=== PATIENT | male | born 1950 | race American Indian/Alaskan Native ===

== ENCOUNTER 2018-10-21 07:44 | Observation (INO) | payer MEDICARE, OTHER ==
[2018-10-17 11:22] LABS: Basophils # (Auto) 0.1 K/mm3 (0.0-0.1); Basophils % (Auto) 1.4 % (0.0-1.8); Eosinophils # (Auto) 0.4 K/mm3 (0.0-0.4); Eosinophils % (Auto) 6.9 % (0.0-4.3); Hematocrit 42.8 % (35.5-45.6); Hemoglobin 14.6 gm/dl (11.8-15.2); Lymphocytes # (Auto) 1.5 K/mm3 (1.2-5.4); Lymphocytes % (Auto) 29.3 % (13.4-35.0); Mean Corpuscular HGB Conc 34 % (32-34); Mean Corpuscular Volume 89 fl (84-94); Monocytes # (Auto) 0.5 K/mm3 (0.0-0.8); Monocytes % (Auto) 8.8 % (0.0-7.3); Platelet Count 202 K/mm3 (140-440); Red Blood Count 4.84 M/mm3 (3.65-5.03); Red Cell Distribution Width 13.8 % (13.2-15.2)
--- NOTE | 2018-10-17 11:29 | Anesthesia Consultation ---
Anesthesia Consult and Med Hx Date of service: 10/21/18 - Airway Anesthetic Teeth Evaluation: Good ROM Head & Neck: Adequate Mental/Hyoid Distance: Adequate Mallampati Class: Class I Intubation Access Assessment: Good - Pulmonary Exam CTA: Yes - Cardiac Exam Cardiac Exam: RRR - Pre-Operative Health Status ASA Pre-Surgery Classification: ASA3 Proposed Anesthetic Plan: General - Pulmonary Hx Smoking: Yes (STOPPED AT AGE 19 YRS) Hx Sleep Apnea: No (DARVIN PRE SCREEN HIGH RISK) - Cardiovascular System Hx Hypertension: Yes (X 45 YRS) Hx Heart Murmur: Yes - Endocrine Hx Insulin Dependent Diabetes: Yes (To hold am insulin) - Other Systems Hx Cancer: No
[2018-10-17 11:38] LABS: INR 0.97 (0.87-1.13)
[2018-10-17 11:39] LABS: Partial Thromboplastin Time 27.6 Sec. (24.2-36.6)
[2018-10-17 11:42] LABS: Alanine Aminotransferase 16 units/L (7-56); Albumin 4.1 g/dL (3.9-5); BUN/Creatinine Ratio 15; Blood Urea Nitrogen 20 mg/dL (9-20); Calcium 9.6 mg/dL (8.4-10.2); Hemolysis Index 3
[~2018-10-21 07:44] MED LIST: PEPCID PO NR; VERSED IV NR
--- NOTE | 2018-10-21 08:41 | Anesthesia Day of Surgery ---
Anesthesia Day of Surgery - Day of Surgery Patient Examined: Yes Patient H&P Reviewed: Yes Patient is NPO: Yes
[2018-10-21] MEDS: NACL 0.9% 1000 ML 1,000 ML IV SCH (08:45)
[2018-10-21] MEDS ORDERED: DILAUDID IV PRN (08:58)
[2018-10-21] MEDS ORDERED: ANCEF/STERILE WATER 2 GM/20 ML IV NR (09:00)
[2018-10-21] MEDS ORDERED: SUBLIMAZE ONE ×2 (09:22→10:41)
[2018-10-21] MEDS ORDERED: DIPRIVAN 10 MG/ML IV ONE (09:23)
[2018-10-21] MEDS ORDERED: ZOFRAN ONE (09:24)
[2018-10-21] MEDS ORDERED: XYLOCAINE MPF 2% ONE (09:24)
[2018-10-21] MEDS ORDERED: RIFADIN ONE (09:29)
[2018-10-21] MEDS ORDERED: GENTAMICIN ONE (09:29)
[2018-10-21] MEDS ORDERED: NACL P/F VIAL (10 ML) 10 ML ONE (09:29)
[2018-10-21] MEDS ORDERED: NACL 0.9% 50 ML ONE (09:30)
[2018-10-21] MEDS ORDERED: NACL 0.9% 500 ML 500 ML ONE (09:30)
[2018-10-21] MEDS ORDERED: NACL P/F VIAL (10 ML) 0 ML ONE (09:35)
[2018-10-21] MEDS ORDERED: MARCAINE 0.25% INFILTRATI ONE ×2 (09:37→09:56)
[2018-10-21] MEDS ORDERED: GENTAMICIN IV ONE (09:56)
[2018-10-21] MEDS ORDERED: NEOSPORIN GU IR ONE ×2 (09:56→10:45)
[2018-10-21] MEDS ORDERED: RIFADIN IV ONE (09:56)
[2018-10-21] MEDS ORDERED: ZOFRAN IV PRN (11:24)
[2018-10-21] MEDS ORDERED: D50W (25GM) Syringe IV PRN (11:24)
[2018-10-21] MEDS ORDERED: MORPHINE IV PRN (11:24)
[2018-10-21] MEDS ORDERED: NARCAN 0.4 MG/1 ML IV PRN (11:24)
--- NOTE | 2018-10-21 11:24 | Short Stay Summary ---
Short Stay Documentation Date of service: 10/21/18 - History H&P: obtained from office - Allergies and Medications Current Medications: Allergies lisinopril Allergy (Verified 10/16/18 09:58) Unknown spironolactone Allergy (Verified 10/16/18 09:58) Unknown tramadol Allergy (Verified 10/16/18 09:58) Unknown travoprost [From Travatan Z] Allergy (Verified 10/16/18 09:58) Unknown Home Medications Medication Instructions Recorded Confirmed Last Taken Type Aspirin [Adult Aspirin] 81 mg PO DAILY 10/16/18 10/16/18 Unknown History AtorvaSTATin [Lipitor] 40 mg PO QHS 10/17/18 10/17/18 Unknown History Cetirizine HCl [ZyrTEC 10mg cap] 10 mg PO DAILY 10/17/18 10/17/18 Unknown History Cholecalciferol (Vitamin D3) 1,000 unit PO DAILY 10/17/18 10/17/18 Unknown History [Children's Vitamin D3 1,000 unit CHEW] DOXYCYCLINE Hyclate [Vibramycin] 100 mg PO Q12HR 10/17/18 10/17/18 Unknown History Docusate Sodium [Colace] 100 mg PO BID PRN 10/17/18 10/17/18 Unknown History Dorzolamide/Timolol/Pf [Timolol 1 drop OP DAILY 10/17/18 10/17/18 Unknown History 0.5%-Dorzolamide 2%] Eplerenone [Inspra] 50 mg PO DAILY 10/17/18 10/17/18 Unknown History Insulin Aspart [NovoLOG Flexpen] 15 units SQ AC 10/17/18 10/17/18 Unknown History Insulin Glargine,Hum.rec.anlog 10 unit SQ TID 10/17/18 10/17/18 Unknown History [Lantus Solostar] Latanoprost 0.005% [Xalatan 0.005%] 1 drop OP QPM 10/17/18 10/17/18 Unknown History Losartan [Cozaar] 100 mg PO QDAY 10/17/18 10/17/18 Unknown History Multivit-Min/FA/Lycopen/Lutein 1 each PO DAILY 10/17/18 10/17/18 Unknown History [Centrum Silver Men Tablet] Prazosin [Minipress] 5 mg PO DAILY 10/17/18 10/17/18 Unknown History Pregabalin [Lyrica] 100 mg PO DAILY 10/17/18 10/17/18 Unknown History amLODIPine [Norvasc] 10 mg PO DAILY 10/17/18 10/17/18 Unknown History traZODone [Desyrel] 100 mg PO BID 10/17/18 10/17/18 Unknown History Active Medications Cefazolin Sodium (Ancef/Sterile Water 2 Gm/20 Ml) 2 gm IV PREOP NR Stop: 10/21/18 16:00 Hydromorphone HCl (Dilaudid) 0.5 mg IV Q10MIN PRN PRN Reason: Pain , Severe (7-10) Stop: 10/21/18 20:00 Sodium Chloride (Nacl 0.9% 1000 Ml) 1,000 mls @ 100 mls/hr IV DIRECT ANGELO Last Admin: 10/21/18 08:45 Dose: 100 mls/hr Documented by: - Brief post op/procedure progress note Date of procedure: 10/21/18 Pre-op diagnosis: ED Post-op diagnosis: same Procedure: ipp COLOPLAST (22CM + 2CM RTE), INJECTION CORPORAL BODY, SCROTAPLASTY Surgeon: BRANDI CLANCY Paper Box Cutter: KATHI MILLER Estimated blood loss: minimal Pathology: list (SCROTAL SKIN) Specimen disposition: to lab Condition: stable - Hospital course Hospital course: KARINA BACTRIIta at home, POST OP INFO ON CHART asa sullivaney & cecilia - Disposition Condition at discharge: Stable Short Stay Discharge Plan Follow up with: [facility] [Primary Care Provider] - 7 Days
[2018-10-21] MEDS ORDERED: COLACE PO PRN (11:29)
--- NOTE | 2018-10-21 11:56 | Consultation ---
History of Present Illness - Reason for Consult Consult date: 10/21/18 Requesting physician: BRANDI PAINTER - History of Present Illness 68 YO Male with DM, HTN admitted to [facility] for elective Urology procedure. Consult placed by Dr. Painter for medical management. Pt seen and evaluated in his room. Pt denies fever, chills, CP, Palpitations, NVD, productive cough, or recent ill contacts. No reported nursing events. Past History Past Medical History: diabetes, hypertension Past Surgical History: Other (urologic surgery) Social history: , lives with family. denies: smoking, alcohol abuse, prescription drug abuse Family history: hypertension Medications and Allergies Allergies Allergy/AdvReac Type Severity Reaction Status Date / Time lisinopril Allergy Unknown Verified 10/16/18 09:58 spironolactone Allergy Unknown Verified 10/16/18 09:58 tramadol Allergy Unknown Verified 10/16/18 09:58 travoprost [From Travatan Z] Allergy Unknown Verified 10/16/18 09:58 Home Medications Medication Instructions Recorded Confirmed Last Taken Type Aspirin [Adult Aspirin] 81 mg PO DAILY 10/16/18 10/16/18 Unknown History AtorvaSTATin [Lipitor] 40 mg PO QHS 10/17/18 10/17/18 Unknown History Cetirizine HCl [ZyrTEC 10mg cap] 10 mg PO DAILY 10/17/18 10/17/18 Unknown History Cholecalciferol (Vitamin D3) 1,000 unit PO DAILY 10/17/18 10/17/18 Unknown Hist ory [Children's Vitamin D3 1,000 unit CHEW] DOXYCYCLINE Hyclate [Vibramycin] 100 mg PO Q12HR 10/17/18 10/17/18 Unknown History Docusate Sodium [Colace] 100 mg PO BID PRN 10/17/18 10/17/18 Unknown History Dorzolamide/Timolol/Pf [Timolol 1 drop OP DAILY 10/17/18 10/17/18 Unknown Hist ory 0.5%-Dorzolamide 2%] Eplerenone [Inspra] 50 mg PO DAILY 10/17/18 10/17/18 Unknown History Insulin Aspart [NovoLOG Flexpen] 15 units SQ AC 10/17/18 10/17/18 Unknown History Insulin Glargine,Hum.rec.anlog 10 unit SQ TID 10/17/18 10/17/18 Unknown History [Lantus Solostar] Latanoprost 0.005% [Xalatan 0.005%] 1 drop OP QPM 10/17/18 10/17/18 Unknown History Losartan [Cozaar] 100 mg PO QDAY 10/17/18 10/17/18 Unknown History Multivit-Min/FA/Lycopen/Lutein 1 each PO DAILY 10/17/18 10/17/18 Unknown History [Centrum Silver Men Tablet] Prazosin [Minipress] 5 mg PO DAILY 10/17/18 10/17/18 Unknown History Pregabalin [Lyrica] 100 mg PO DAILY 10/17/18 10/17/18 Unknown History amLODIPine [Norvasc] 10 mg PO DAILY 10/17/18 10/17/18 Unknown History traZODone [Desyrel] 100 mg PO BID 10/17/18 10/17/18 Unknown History Active Meds: Active Medications Acetaminophen/Hydrocodone Bitart ([place] 5/325) 2 each PO Q6H PRN PRN Reason: Pain, Moderate (4-6) Amlodipine Besylate (Norvasc) 10 mg PO DAILY ANGELO Atorvastatin Calcium (Lipitor) 40 mg PO QHS ANGELO Cefazolin Sodium (Ancef/Sterile Water 2 Gm/20 Ml) 2 gm IV PREOP NR Stop: 10/21/18 16:00 Cholecalciferol (Vitamin D3) 1,000 unit PO QDAY ANGELO Dextrose (D50w (25gm) Syringe) 50 ml IV PRN PRN PRN Reason: Hypoglycemia Docusate Sodium (Colace) 100 mg PO BID PRN PRN Reason: Constipation Hydromorphone HCl (Dilaudid) 0.5 mg IV Q10MIN PRN PRN Reason: Pain , Severe (7-10) Stop: 10/21/18 20:00 Sodium Chloride (Nacl 0.9% 1000 Ml) 1,000 mls @ 100 mls/hr IV DIRECT ANGELO Last Admin: 10/21/18 08:45 Dose: 100 mls/hr Documented by: Sodium Chloride (Nacl 0.45% 1000 Ml) 1,000 mls @ 100 mls/hr IV DIRECT ANGELO Cefazolin Sodium (Ancef/Ns 1 Gm/50 Ml) 1 gm in 50 mls @ 100 mls/hr IV Q8H ANGELO; Protocol Stop: 10/21/18 20:29 Insulin Human Regular (Humulin R) 0 units SUB-Q ACHS ANGELO; Protocol Latanoprost (Latanoprost 0.005%) 1 drops OU QPM ANGELO Losartan Potassium (Cozaar) 100 mg PO QDAY [facility] Miscellaneous Medication (Cetirizine Hcl [Zyrtec 10mg Cap]) 10 mg PO DAILY [facility] Miscellaneous Medication (Dorzolamide/Timolol/Pf [Timolol 0.5%-Dorzolamide 2%]) 1 drop OP DAILY ANGELO Miscellaneous Medication (Eplerenone [Inspra]) 50 mg PO DAILY ANGELO Miscellaneous Medication (Insulin Aspart [Novolog Flexpen]) 15 units SQ AC ANGELO Miscellaneous Medication (Insulin Glargine,Hum.Rec.Anlog [Lantus Solostar]) 10 unit SQ TID ANGELO Miscellaneous Medication (Multivit-Min/Fa/Lycopen/Lutein [Centrum Silver Men Tablet]) 1 each PO DAILY [facility] Morphine Sulfate (Morphine) 2 mg IV Q4H PRN PRN Reason: Pain, Moderate (4-6) Naloxone HCl (Narcan 0.4 Mg/1 Ml) 0.1 mg IV Q2MIN PRN PRN Reason: Res Rate </= 8 or 02 SAT < 92% Ondansetron HCl (Zofran) 4 mg IV Q8H PRN PRN Reason: N/V unrelieved by Reglan Prazosin HCl (Minipress) 5 mg PO DAILY [facility] Pregabalin (Lyrica) 100 mg PO QDAY [facility] Trazodone HCl (Desyrel) 100 mg PO BID [facility] Review of Systems Constitutional: no weight loss, no weight gain, no fever, no chills Ears, nose, mouth and throat: no ear pain, no ear discharge, no tinnitis, no nasal discharge Cardiovascular: no chest pain, no orthopnea, no palpitations, no rapid/irregular heart beat, no syncope Respiratory: no cough, no excessive sputum, no hemoptysis, no shortness of breath Gastrointestinal: no abdominal pain, no nausea, no diarrhea, no constipation, no change in bowel habits Genitourinary Male: no hematuria, no urinary hesitancy, no nocturia, no incontinence Rectal: no pain, no incontinence, no bleeding Musculoskeletal: no neck stiffness, no neck pain, no shooting arm pain, no shooting leg pain Integumentary: no rash, no pruritis, no redness, no sores, no wounds Neurological: no head injury, no transient paralysis, no paralysis, no weakness, no numbness, no tingling, no syncope Psychiatric: no anxiety, no memory loss, no sleep disturbances, no insomnia, no hypersomnia, no change in libido, no suicidal ideation Endocrine: no cold intolerance, no heat intolerance, no polyphagia, no excessive thirst, no polyuria Hematologic/Lymphatic: no easy bruising, no easy bleeding, no lymphadenopathy, no lymphedema Allergic/Immunologic: no urticaria, no allergic rhinitis, no wheezing, no persistent infections, no anaphylaxis Exam - Constitutional Vitals: Temp Pulse Resp BP Pulse Ox 98.4 F 104 H 18 126/83 98 10/21/18 08:20 10/21/18 11:50 10/21/18 11:50 10/21/18 11:50 10/21/18 11:50 General appearance: Present: no acute distress, well-nourished - EENT Eyes: Present: PERRL ENT: hearing intact, clear oral mucosa - Neck Neck: Present: supple, normal ROM - Respiratory Respiratory effort: normal Respiratory: bilateral: CTA - Cardiovascular Heart Sounds: Present: S1 & S2. Absent: rub, click - Extremities Extremities: pulses symmetrical, No edema Peripheral Pulses: within normal limits - Abdominal General gastrointestinal: Present: soft, non-tender, non-distended, normal bowel sounds Male genitourinary: Present: normal - Integumentary Integumentary: Present: clear, warm, dry - Musculoskeletal Musculoskeletal: gait normal, strength equal bilaterally - Psychiatric Psychiatric: appropriate mood/affect, intact judgment & insight - Neurologic Neurologic: CNII-XII intact, moves all extremities Results - Labs CBC & Chem 7: 10/17/18 10:55 10/17/18 10:55 Assessment and Plan - Patient Problems (1) HTN (hypertension) Current Visit: Yes Status: Acute Qualifiers: Hypertension type: essential hypertension Qualified Code(s): I10 - Essential (primary) hypertension Plan to address problem: monitor BP q shift, (2) Diabetes Current Visit: Yes Status: Acute Plan to address problem: ADA diet, insulin, accu check
--- NOTE | 2018-10-21 11:58 | Operative Report ---
PREOPERATIVE DIAGNOSIS: Erectile dysfunction. POSTOPERATIVE DIAGNOSIS: Erectile dysfunction. PROCEDURE: 1. Insertion of inflatable penile prosthesis (Coloplast Titan 22 cm +2 cm rear tip clay structure builder and servicer with 125 mL reservoir). 2. Scrotoplasty secondary to redundant scrotal skin. 3. Insertion of pharmacologic agent in corporal bodies. SURGEON: Daniel Painter MD CORRESPONDENCE SCHOOL INSTRUCTOR: Doc Baker. ANESTHESIA: General. ESTIMATED BLOOD LOSS: Minimal. FLUIDS: Crystalloid. COMPLICATIONS: No complications. INDICATIONS: This patient is a 68-year-old gentleman seen in the office with long history of erectile dysfunction, refractory to medical management. Discussed options. The patient wanted to proceed with surgical intervention. Cardiac clearance was by Dr. Verdugo. DESCRIPTION OF PROCEDURE: The patient was taken to the operative suite, placed in a supine position. After adequate general anesthesia, he was prepped and draped in a sterile fashion. Pryor catheter was placed on the operative field. Metal Lawrence retractor was used for exposure. A 0.25% Marcaine was injected into the corporal body to identify curvature and postop pain. No curvature or plaque could be appreciated. Transscrotal incision was made with the Bovie. Sharp dissection was taken down to the corporal bodies. A 2-0 Vicryl stay sutures were placed. Corporotomies were made bilaterally. Gentle dilation was performed. Total measurement 24 cm bilaterally; therefore, a 22 cm Coloplast Titan device with 2 cm rear tip extenders were prepped and placed. The device was dipped in antibiotic solution with the aid of a Blas needle and Porter. The cylinders were brought out through the glans penis proximally. The device was inserted in the corporal body without difficulty. A 2-0 Vicryl suture was used to close the corporotomies. Insufflation, the adequate seating of the cylinders could be appreciated and approximately 60 mL of saline was used. No curvature or deformity could be appreciated. Copious irrigation was performed. Adequate hemostasis achieved. The reservoir was placed in the retropubic space via the right external ring. A 110 mL was placed without difficulty. The quick-click connection system was used to connect the reservoir to the pump. Once they were connected, again cycling was performed with an excellent cosmetic appearance. The pump was placed in the dependent portion of the scrotum. A pursestring suture was used to secure the pump in a dependent portion running stitch of 2-0 Vicryl to close the dartos layer. There was redundant skin, which was trimmed on the proximal and distal aspect of the scrotum and sent for routine pathologic evaluation. Scrotal skin was then closed with 2-0 Vicryl in an interrupted fashion. Collodion was placed, Xeroform gauze and Mummy wrap was also placed. The patient was extubated and taken to recovery room. He will be observed overnight and go home on Bactrim and Ty Ty. JOB# [id number] [facility]
[2018-10-21] MEDS ORDERED: NACL 0.45% 1000 ML 1,000 ML IV SCH (12:00)
--- NOTE | 2018-10-21 12:06 | Event Note ---
Date: 10/21/18 consult hospitalist for med mgmt spoke with Dr. Louise Dhillon to see
[2018-10-21] MEDS ORDERED: DILAUDID ONE (12:45)
[2018-10-21] MEDS ORDERED: HumaLOG SUB-Q ONE (13:19)
[2018-10-21] MEDS ORDERED: D50W (25GM) Syringe IV ONE ×2 (13:49→13:50)
[2018-10-21] MEDS ORDERED: NACL 0.45% 1000 ML 1,000 ML IV ONE (13:55)
[2018-10-21] MEDS ORDERED: LANTUS SUB-Q SCH (14:00)
[2018-10-21] MEDS ORDERED: LATANOPROST 0.005% OU SCH (18:00)
[2018-10-21] MEDS: HumaLOG SUB-Q SCH (19:21)
[2018-10-21] MEDS: ANCEF/NS 1 GM/50 ML 1 GM/50 ML BAG IV SCH (21:42)
[2018-10-21] MEDS: DESYREL PO SCH (21:43)
[2018-10-22] MEDS: LANTUS SUB-Q SCH ×2 (00:10→00:11)
[2018-10-22] MEDS: HumuLIN R SUB-Q SCH ×4 (00:11→16:50)
[2018-10-22] MEDS: NACL 0.9% 1000 ML 1,000 ML IV SCH (02:19)
[2018-10-22] MEDS: NORCO 5/325 PO PRN ×2 (02:20→17:21)
[2018-10-22] MEDS: ANCEF/NS 1 GM/50 ML 1 GM/50 ML BAG IV SCH (05:12)
[2018-10-22] MEDS ORDERED: LANTUS SUB-Q SCH (08:00)
--- NOTE | 2018-10-22 08:43 | Progress Note ---
Assessment and Plan Assessment and plan: 68 YO Male with DM, HTN admitted to [facility] for elective Urology procedure. Consult placed by Dr. Painter for medical management. Hypertension - Patient's blood pressures on the low side of normal - I held his amlodipine for now Diabetes mellitus - Sliding-scale insulin - Blood sugar within target Status post elective urologic procedure for ED - Management is per urology Patient is medically stable. We'll follow along. Thank you for the consult. History Interval history: Patient was seen and evaluated this morning, patient didn't have any complaints. Hospitalist Physical - Physical exam Narrative exam: Not in cardiopulmonary distress. The patient appeared well nourished and normally developed. Vital signs as documented. Head exam is unremarkable. No scleral icterus . Neck is without jugular venous distension, thyromegaly, or carotid bruits. Lungs are clear to auscultation. Cardiac exam reveals regular rate and Rhythm. First and second heart sounds normal. No murmurs, rubs or gallops. Abdominal exam reveals normal bowel sounds, no masses, no organomegaly and no aortic enlargement. Extremities are nonedematous and both femoral and pedal pulses are normal. BOWLING OR SKATING FRONT DESK CLERK: Alert and oriented 3. No focal weakness. - Constitutional Vitals: Temp Pulse Resp BP Pulse Ox 97.5 F L 97 H 18 102/65 100 10/22/18 04:56 10/22/18 04:56 10/22/18 04:56 10/22/18 04:56 10/22/18 04:56 General appearance: Present: no acute distress, well-nourished Results - Labs CBC & Chem 7: 10/17/18 10:55 10/17/18 10:55 Labs: Laboratory Last Values WBC 5.2 K/mm3 (4.5-11.0) 10/17/18 10:55 RBC 4.84 M/mm3 (3.65-5.03) 10/17/18 10:55 Hgb 14.6 gm/dl (11.8-15.2) 10/17/18 10:55 Hct 42.8 % (35.5-45.6) 10/17/18 10:55 MCV 89 fl (84-94) 10/17/18 10:55 MCH 30 pg (28-32) 10/17/18 10:55 MCHC 34 % (32-34) 10/17/18 10:55 RDW 13.8 % (13.2-15.2) 10/17/18 10:55 Plt Count 202 K/mm3 (140-440) 10/17/18 10:55 Lymph % (Auto) 29.3 % (13.4-35.0) 10/17/18 10:55 [place] % (Auto) 8.8 % (0.0-7.3) H 10/17/18 10:55 Eos % (Auto) 6.9 % (0.0-4.3) H 10/17/18 10:55 Baso % (Auto) 1.4 % (0.0-1.8) 10/17/18 10:55 Lymph # 1.5 K/mm3 (1.2-5.4) 10/17/18 10:55 [place] # 0.5 K/mm3 (0.0-0.8) 10/17/18 10:55 Eos # 0.4 K/mm3 (0.0-0.4) 10/17/18 10:55 Baso # 0.1 K/mm3 (0.0-0.1) 10/17/18 10:55 Seg Neutrophils % 53.6 % (40.0-70.0) 10/17/18 10:55 Seg Neutrophils # 2.8 K/mm3 (1.8-7.7) 10/17/18 10:55 PT 13.5 Sec. (12.2-14.9) 10/17/18 10:55 INR 0.97 (0.87-1.13) 10/17/18 10:55 APTT 27.6 Sec. (24.2-36.6) 10/17/18 10:55 Sodium 139 mmol/L (137-145) 10/17/18 10:55 Potassium 4.3 mmol/L (3.6-5.0) 10/17/18 10:55 Chloride 99.3 mmol/L (98-107) 10/17/18 10:55 Carbon Dioxide 28 mmol/L (22-30) 10/17/18 10:55 16 mmol/L 10/17/18 10:55 BUN 20 mg/dL (9-20) 10/17/18 10:55 1.3 mg/dL (0.8-1.5) 10/17/18 10:55 Estimated GFR > 60 ml/min 10/17/18 10:55 15 % 10/17/18 10:55 Glucose 75 mg/dL (75-100) 10/17/18 10:55 POC Glucose 152 (70-105) H 10/22/18 07:43 Calcium 9.6 mg/dL (8.4-10.2) 10/17/18 10:55 0.50 mg/dL (0.1-1.2) 10/17/18 10:55 AST 17 units/L (5-40) 10/17/18 10:55 ALT 16 units/L (7-56) 10/17/18 10:55 84 units/L (35-129) 10/17/18 10:55 7.5 g/dL (6.3-8.2) 10/17/18 10:55 4.1 g/dL (3.9-5) 10/17/18 10:55 1.2 % 10/17/18 10:55 Active Medications - Current Medications Current Medications: Generic Name Dose Route Start Last Admin Trade Name Freq PRN Reason Stop Dose Admin Acetaminophen/Hydrocodone Bitart 2 each 10/21/18 11:24 10/22/18 02:20 [place] 5/325 PO 2 each Q6H PRN Administration Pain, Moderate (4-6) Amlodipine Besylate 10 mg 10/22/18 10:00 Norvasc PO DAILY ANGELO Atorvastatin Calcium 40 mg 10/21/18 22:00 10/21/18 21:42 Lipitor PO 40 mg QHS ANGELO Administration Cholecalciferol 1,000 unit 10/22/18 10:00 Vitamin D3 PO QDAY ANGELO Dextrose 50 ml 10/21/18 11:24 D50w (25gm) Syringe IV PRN PRN Hypoglycemia Docusate Sodium 100 mg 10/21/18 11:29 Colace PO BID PRN Constipation Sodium Chloride 1,000 mls @ 100 mls/hr 10/17/18 12:00 10/22/18 02:19 Nacl 0.9% 1000 Ml IV 100 mls/hr DIRECT ANGELO Administration Sodium Chloride 1,000 mls @ 100 mls/hr 10/21/18 12:00 Nacl 0.45% 1000 Ml IV DIRECT AGNELO Insulin Glargine 10 units 10/22/18 08:00 Lantus SUB-Q TID [facility] Insulin Human Lispro 15 unit 10/21/18 16:30 10/21/18 19:21 Humalog SUB-Q Not Given AC [facility] Insulin Human Regular 0 units 10/22/18 07:30 Humulin R SUB-Q AC [facility] Protocol Latanoprost 1 drops 10/21/18 18:00 10/21/18 21:43 Latanoprost 0.005% OU 1 drops QPM [facility] Administration Loratadine 10 mg 10/22/18 10:00 Claritin PO DAILY [facility] Losartan Potassium 100 mg 10/22/18 10:00 Cozaar PO QDAY [facility] Miscellaneous Medication 1 drop 10/22/18 10:00 Dorzolamide/Timolol/Pf [Timolol 0.5%-Dorzolamide 2%] OP DAILY [facility] Miscellaneous Medication 50 mg 10/22/18 10:00 Eplerenone [Inspra] PO DAILY [facility] Morphine Sulfate 2 mg 10/21/18 11:24 10/21/18 19:13 Morphine IV 2 mg Q4H PRN Administration Pain, Moderate (4-6) Multivitamins/Minerals 1 each 10/22/18 10:00 Theragran-M Tab PO QDAY [facility] Naloxone HCl 0.1 mg 10/21/18 11:24 Narcan 0.4 Mg/1 Ml IV Q2MIN PRN Res Rate </= 8 or 02 SAT < 92% Ondansetron HCl 4 mg 10/21/18 11:24 Zofran IV Q8H PRN N/V unrelieved by Jasmeet Prazosin HCl 5 mg 10/22/18 10:00 Minipress PO DAILY [facility] Pregabalin 100 mg 10/22/18 10:00 Lyrica PO QDAY [facility] Trazodone HCl 100 mg 10/21/18 22:00 10/21/18 21:43 Desyrel PO 100 mg BID ANGELO Administration
[2018-10-22] MEDS: DESYREL PO SCH (09:07)
[2018-10-22] MEDS: HumaLOG SUB-Q SCH ×3 (09:19→16:45)
[2018-10-22] MEDS ORDERED: THERAGRAN-M Tab PO SCH (10:00)
[2018-10-22] MEDS ORDERED: MINIPRESS PO SCH (10:00)
[2018-10-22] MEDS ORDERED: NORVASC PO SCH (10:00)
[2018-10-22] MEDS ORDERED: CLARITIN PO SCH (10:00)
[2018-10-22] MEDS ORDERED: COZAAR PO SCH (10:00)
[2018-10-22] MEDS ORDERED: LYRICA PO SCH (10:00)
[2018-10-22] MEDS ORDERED: NON-FORMULARY (Cetirizine Hcl [Zyrtec 10mg Cap] 10 MG) PO SCH (10:00)
[2018-10-22] MEDS ORDERED: DORZOLAMIDE OP SCH (10:00)
[2018-10-22] MEDS ORDERED: TIMOLOL OP SCH (10:00)
[2018-10-22] MEDS ORDERED: EPLERENONE 50 MG PO SCH (10:00)
[2018-10-22] MEDS ORDERED: VITAMIN D3 PO SCH (10:00)
[2018-10-22 13:00] VITALS: BP 111/67
== END 2018-10-22 19:33 | disposition home or self-care (01) ==
LOC: OR 07:44 → 3A 11:24 → 3B-SURG 14:12
PROVIDERS: ADMIT Urology; ATTEND Urology
DX: N52.01 Erectile dysfunction due to arterial insufficiency (principal); E11.9 Type 2 diabetes mellitus without complications; I10 Essential (primary) hypertension; Z98.890 Other specified postprocedural states; Z88.8 Allergy status to other drugs, medicaments and biological substances; Z79.82 Long term (current) use of aspirin; Z79.899 Other long term (current) drug therapy
CPT/HCPCS: 36415; 54401; 55175; 80053; 82962; 85025; 85610; 85730; 96365; 96366; 96372; 96375; A9270; C1813; G0378; J0690; J1170; J1580; J2270; J2405; J2704; J3010; J3490; J7030; J7040; J1815

== ENCOUNTER 2018-11-26 10:45 | Emergency (ER) | payer MEDICARE, OTHER ==
[2018-11-26] MEDS ORDERED: D50W (25GM) Syringe IV ONE (10:50)
[2018-11-26] MEDS ORDERED: D50W (25GM) Vial IV ONE (10:58)
--- NOTE | 2018-11-26 11:00 | Emergency Department Report ---
ED Altered Mental Status HPI - General Stated Complaint: AMS Time Seen by Provider: 11/26/18 10:52 Source: RN/MD Mode of arrival: Wheelchair Limitations: Altered Mental Status - History of Present Illness Initial Comments: 68-year-old male with history of diabetes presents to ED with altered mental status. Patient was brought over from Dr. Painter's office. The patient present ed to Dr. Painter's office for an appointment this morning. On arrival for his appointment, patient was altered and diaphoretic so he was wheeled over to the ER. Accu-Chek reads less than 25. - Related Data Home Medications Medication Instructions Recorded Confirmed Last Taken Aspirin [Adult Aspirin] 81 mg PO DAILY 10/16/18 10/16/18 Unknown AtorvaSTATin [Lipitor] 40 mg PO QHS 10/17/18 10/17/18 Unknown Cetirizine HCl [ZyrTEC 10mg cap] 10 mg PO DAILY 10/17/18 10/17/18 Unknown Cholecalciferol (Vitamin D3) 1,000 unit PO DAILY 10/17/18 10/17/18 Unknown [Children's Vitamin D3 1,000 unit CHEW] DOXYCYCLINE Hyclate [Vibramycin] 100 mg PO Q12HR 10/17/18 10/17/18 Unknown Docusate Sodium [Colace] 100 mg PO BID PRN 10/17/18 10/17/18 Unknown Dorzolamide/Timolol/Pf [Timolol 1 drop OP DAILY 10/17/18 10/17/18 Unknown 0.5%-Dorzolamide 2%] Eplerenone [Inspra] 50 mg PO DAILY 10/17/18 10/17/18 Unknown Insulin Aspart [NovoLOG Flexpen] 15 units SQ AC 10/17/18 10/17/18 Unknown Insulin Glargine,Hum.rec.anlog 10 unit SQ TID 10/17/18 10/17/18 Unknown [Lantus Solostar] Latanoprost 0.005% [Xalatan 0.005%] 1 drop OP QPM 10/17/18 10/17/18 Unknown Losartan [Cozaar] 100 mg PO QDAY 10/17/18 10/17/18 Unknown Multivit-Min/FA/Lycopen/Lutein 1 each PO DAILY 10/17/18 10/17/18 Unknown [Centrum Silver Men Tablet] Prazosin [Minipress] 5 mg PO DAILY 10/17/18 10/17/18 Unknown Pregabalin [Lyrica] 100 mg PO DAILY 10/17/18 10/17/18 Unknown amLODIPine [Norvasc] 10 mg PO DAILY 10/17/18 10/17/18 Unknown traZODone [Desyrel] 100 mg PO BID 10/17/18 10/17/18 Unknown Allergies Allergy/AdvReac Type Severity Reaction Status Date / Time lisinopril Allergy Unknown Verified 10/16/18 09:58 spironolactone Allergy Unknown Verified 10/16/18 09:58 tramadol Allergy Unknown Verified 10/16/18 09:58 travoprost [From Travatan Z] Allergy Unknown Verified 10/16/18 09:58 ED Review of Systems ROS: Stated complaint: AMS Other details as noted in HPI Comment: Unobtainable due to pts medical conditions ED Past Medical Hx - Past Medical History Hx Hypertension: Yes Hx Diabetes: Yes Hx HIV: No - Social History Smoking Status: Former Smoker - Medications Home Medications: Home Medications Medication Instructions Recorded Confirmed Last Taken Type Aspirin [Adult Aspirin] 81 mg PO DAILY 10/16/18 10/16/18 Unknown History AtorvaSTATin [Lipitor] 40 mg PO QHS 10/17/18 10/17/18 Unknown History Cetirizine HCl [ZyrTEC 10mg cap] 10 mg PO DAILY 10/17/18 10/17/18 Unknown History Cholecalciferol (Vitamin D3) 1,000 unit PO DAILY 10/17/18 10/17/18 Unknown History [Children's Vitamin D3 1,000 unit CHEW] DOXYCYCLINE Hyclate [Vibramycin] 100 mg PO Q12HR 10/17/18 10/17/18 Unknown History Docusate Sodium [Colace] 100 mg PO BID PRN 10/17/18 10/17/18 Unknown History Dorzolamide/Timolol/Pf [Timolol 1 drop OP DAILY 10/17/18 10/17/18 Unknown History 0.5%-Dorzolamide 2%] Eplerenone [Inspra] 50 mg PO DAILY 10/17/18 10/17/18 Unknown History Insulin Aspart [NovoLOG Flexpen] 15 units SQ AC 10/17/18 10/17/18 Unknown History Insulin Glargine,Hum.rec.anlog 10 unit SQ TID 10/17/18 10/17/18 Unknown History [Lantus Solostar] Latanoprost 0.005% [Xalatan 0.005%] 1 drop OP QPM 10/17/18 10/17/18 Unknown History Losartan [Cozaar] 100 mg PO QDAY 10/17/18 10/17/18 Unknown History Multivit-Min/FA/Lycopen/Lutein 1 each PO DAILY 10/17/18 10/17/18 Unknown History [Centrum Silver Men Tablet] Prazosin [Minipress] 5 mg PO DAILY 10/17/18 10/17/18 Unknown History Pregabalin [Lyrica] 100 mg PO DAILY 10/17/18 10/17/18 Unknown History amLODIPine [Norvasc] 10 mg PO DAILY 10/17/18 10/17/18 Unknown History traZODone [Desyrel] 100 mg PO BID 10/17/18 10/17/18 Unknown History ED Physical Exam - General General appearance: alert - Head Head exam: Present: atraumatic, normocephalic - Eye Eye exam: Present: normal appearance, PERRL, EOMI - ENT ENT exam: Present: mucous membranes moist - Neck Neck exam: Present: normal inspection - Respiratory Respiratory exam: Present: normal lung sounds bilaterally. Absent: respiratory distress - Cardiovascular Cardiovascular Exam: Present: regular rate, normal rhythm - GI/Abdominal GI/Abdominal exam: Present: soft. Absent: distended, tenderness - Extremities Exam Extremities exam: Present: normal inspection - Neurological Exam Neurological exam: Present: alert, altered, other (pt moving all extremities, responsive, confused, blank stare). Absent: oriented X3 (oriented x2) - Psychiatric Psychiatric exam: Present: normal affect, normal mood - Skin Skin exam: Present: warm, dry, intact, normal color ED Course Vital Signs 11/26/18 11/26/18 12:22 12:23 Temperature 97.6 F Pulse Rate 77 Respiratory 20 20 Rate Blood Pressure 126/81 [Left] O2 Sat by Pulse 97 97 Oximetry - Reevaluation(s) Reevaluation #1: 11/26/18 10:56 Patient given 2 cups of orange juice and 1 amp of D50. Mental status is greatly improved. Patient currently A& O 3. Reevaluation #2: 11/26/18 12:05 Pt given a lunch bag. Remains A&Ox3. No neuro deficits. Repeat accucheck normal. Labs unremarkable, except for mild elevation in creatnine, currently 1.9, previously 1.3. Will d/c at this time. - Lab Data Result diagrams: 11/26/18 11:00 11/26/18 11:00 Lab Results 11/26/18 11/26/18 11/26/18 Range/Units 10:53 11:00 11:00 WBC 7.0 (4.5-11.0) K/mm3 RBC 4.11 (3.65-5.03) M/mm3 Hgb 12.3 (11.8-15.2) gm/dl Hct 36.6 (35.5-45.6) % MCV 89 (84-94) fl MCH 30 (28-32) pg MCHC 34 (32-34) % RDW 14.1 (13.2-15.2) % Plt Count 189 (140-440) K/mm3 Lymph % (Auto) 17.8 (13.4-35.0) % Centre % (Auto) 7.2 (0.0-7.3) % Eos % (Auto) 5.1 H (0.0-4.3) % Baso % (Auto) 0.8 (0.0-1.8) % Lymph # 1.3 (1.2-5.4) K/mm3 Centre # 0.5 (0.0-0.8) K/mm3 Eos # 0.4 (0.0-0.4) K/mm3 Baso # 0.1 (0.0-0.1) K/mm3 Seg Neutrophils % 69.1 (40.0-70.0) % Seg Neutrophils # 4.9 (1.8-7.7) K/mm3 Sodium 140 (137-145) mmol/L Potassium 3.9 (3.6-5.0) mmol/L Chloride 102.6 (98-107) mmol/L Carbon Dioxide 28 (22-30) mmol/L Anion Gap 13 mmol/L BUN 24 H (9-20) mg/dL Creatinine 1.9 H (0.8-1.5) mg/dL Estimated GFR 43 ml/min BUN/Creatinine Ratio 13 % Glucose 148 H (75-100) mg/dL POC Glucose < 40 L (70-105) Calcium 9.1 (8.4-10.2) mg/dL 11/26/18 Range/Units 11:10 WBC (4.5-11.0) K/mm3 RBC (3.65-5.03) M/mm3 Hgb (11.8-15.2) gm/dl Hct (35.5-45.6) % MCV (84-94) fl MCH (28-32) pg MCHC (32-34) % RDW (13.2-15.2) % Plt Count (140-440) K/mm3 Lymph % (Auto) (13.4-35.0) % Centre % (Auto) (0.0-7.3) % Eos % (Auto) (0.0-4.3) % Baso % (Auto) (0.0-1.8) % Lymph # (1.2-5.4) K/mm3 Centre # (0.0-0.8) K/mm3 Eos # (0.0-0.4) K/mm3 Baso # (0.0-0.1) K/mm3 Seg Neutrophils % (40.0-70.0) % Seg Neutrophils # (1.8-7.7) K/mm3 Sodium (137-145) mmol/L Potassium (3.6-5.0) mmol/L Chloride (98-107) mmol/L Carbon Dioxide (22-30) mmol/L Anion Gap mmol/L BUN (9-20) mg/dL Creatinine (0.8-1.5) mg/dL Estimated GFR ml/min BUN/Creatinine Ratio % Glucose (75-100) mg/dL POC Glucose 178 H (70-105) Calcium (8.4-10.2) mg/dL - EKG Data -: EKG Interpreted by Me EKG shows normal: sinus rhythm, intervals, QRS complexes, ST-T waves Rate: normal Interpretation: no acute changes, other (LAFB) - Differential Diagnosis hypoglycemia Critical care attestation.: If time is entered above; I have spent that time in minutes in the direct care of this critically ill patient, excluding procedure time. ED Disposition Clinical Impression: Hypoglycemia Disposition: DC-01 TO HOME OR SELFCARE Is pt being admited?: No Condition: Stable Instructions: Diabetic Hypoglycemia (ED) Referrals: PRIMARY CARE, [Primary Care Provider] - 3-5 Days Time of Disposition: 12:06
[2018-11-26 11:12] LABS: Basophils # (Auto) 0.1 K/mm3 (0.0-0.1); Basophils % (Auto) 0.8 % (0.0-1.8); Eosinophils # (Auto) 0.4 K/mm3 (0.0-0.4); Eosinophils % (Auto) 5.1 % (0.0-4.3); Hematocrit 36.6 % (35.5-45.6); Hemoglobin 12.3 gm/dl (11.8-15.2); Lymphocytes # (Auto) 1.3 K/mm3 (1.2-5.4); Lymphocytes % (Auto) 17.8 % (13.4-35.0); Mean Corpuscular HGB Conc 34 % (32-34); Mean Corpuscular Volume 89 fl (84-94); Monocytes # (Auto) 0.5 K/mm3 (0.0-0.8); Monocytes % (Auto) 7.2 % (0.0-7.3); Platelet Count 189 K/mm3 (140-440); Red Blood Count 4.11 M/mm3 (3.65-5.03); Red Cell Distribution Width 14.1 % (13.2-15.2)
[2018-11-26 11:31] LABS: Calcium 9.1 mg/dL (8.4-10.2)
[2018-11-26 12:23] VITALS: BP 126/81
== END 2018-11-26 12:55 | disposition home or self-care (01) ==
LOC: ED 10:45
DX: E11.649 Type 2 diabetes mellitus with hypoglycemia without coma (principal); I10 Essential (primary) hypertension; Z87.891 Personal history of nicotine dependence; Z79.899 Other long term (current) drug therapy; Z88.8 Allergy status to other drugs, medicaments and biological substances
CPT/HCPCS: 36415; 80048; 82962; 85025; 93005; 93010; 96374

== ENCOUNTER 2021-03-16 05:58 | Observation (INO) | payer MEDICARE, OTHER ==
[2021-03-14 10:01] LABS: Hemoglobin 12.5 gm/dl (11.8-15.2); Mean Corpuscular HGB Conc 33 % (32-34); Mean Corpuscular Volume 90 fl (84-94); Platelet Count 196 K/mm3 (140-440); Red Blood Count 4.22 M/mm3 (3.65-5.03)
[2021-03-14 10:23] LABS: Alanine Aminotransferase 10 units/L (7-56); BUN/Creatinine Ratio 11; Blood Urea Nitrogen 13 mg/dL (9-20); Calcium 9.1 mg/dL (8.4-10.2); Hemolysis Index 13
--- NOTE | 2021-03-14 10:40 | Anesthesia Consultation ---
Anesthesia Consult and Med Hx Date of service: 03/16/21 - Airway Anesthetic Teeth Evaluation: Good ROM Head & Neck: Adequate Mental/Hyoid Distance: Adequate Mallampati Class: Class I Intubation Access Assessment: Good - Pre-Operative Health Status ASA Pre-Surgery Classification: ASA2 Proposed Anesthetic Plan: General - Pulmonary Hx Smoking: Yes (former smoker quit 50yrs ago) Hx Respiratory Symptoms: No Hx Sleep Apnea: No (DARVIN PRE SCREEN HIGH RISK) - Cardiovascular System Hx Hypertension: Yes Hx Heart Attack/AMI: No Hx Percutaneous Transluminal Coronary Angioplasty (PTCA): No Hx Cardia Arrhythmia: No - Central Nervous System Hx Neuromuscular Disorder: No (RLE foot drop 2/2 war injury) CVA: No - Endocrine Hx Renal Disease: No Hx Liver Disease: No Hx Insulin Dependent Diabetes: Yes (reports normal fasting glucose at home) Hx Thyroid Disease: No - Hematic Hx Anemia: No - Other Systems Hx Obesity: No - Additional Comments Anesthesia Medical History Comments: No hx anesthetic complications.
[2021-03-16] MEDS ORDERED: LACTATED RINGERS 1,000 ML IV SCH (06:00)
[2021-03-16] MEDS ORDERED: ACETAMINOPHEN 500 MG TAB PO SCH (06:00)
[2021-03-16] MEDS ORDERED: GABAPENTIN 100 MG CAP PO SCH (06:00)
[2021-03-16] MEDS ORDERED: GABAPENTIN 300 MG CAP PO NR (06:00)
[2021-03-16] MEDS ORDERED: ACETAMINOPHEN 325 MG TAB ONE (06:16)
[2021-03-16] MEDS ORDERED: BACTERIOSTATIC SODIUM CHLORIDE 0.9% 30 ML VIAL INFILTRATI ONE (06:39)
[2021-03-16] MEDS ORDERED: SODIUM CHLORIDE 0.9% 500 ML 500 ML ONE ×2 (07:19→09:08)
[2021-03-16] MEDS ORDERED: AMIKACIN 500 MG/2 ML ONE (07:20)
[2021-03-16] MEDS ORDERED: HYDROmorphone 1 MG/1 ML INJ ONE (07:38)
[2021-03-16] MEDS ORDERED: LIDOCAINE MPF (2%) 20 MG/1 ML VIAL 5 ML ONE (07:38)
[2021-03-16] MEDS ORDERED: propofoL 200 MG/20 ML VIAL IV ONE (07:38)
[2021-03-16] MEDS ORDERED: NEOMY 40 MG/POLYMYXIN B 200,000 UNITS/ML (GU) AMPULE IR ONE ×3 (07:40→09:10)
[2021-03-16] MEDS ORDERED: GENTAMICIN 40 MG/ML VIAL 2 ML ONE (07:45)
[2021-03-16] MEDS ORDERED: rifAMPin 600 MG VIAL ONE (07:45)
--- NOTE | 2021-03-16 07:47 | Anesthesia Day of Surgery ---
Anesthesia Day of Surgery - Day of Surgery Patient Examined: Yes Patient H&P Reviewed: Yes Patient is NPO: Yes
[2021-03-16] MEDS ORDERED: HYDROmorphone 1 MG/1 ML INJ IV PRN (07:48)
[2021-03-16] MEDS ORDERED: ONDANSETRON 4 MG/2 ML INJ IV PRN ×2 (07:48→10:00)
[2021-03-16] MEDS ORDERED: BUPIVACAINE/PF (0.5%) 5 MG/1 ML 30 ML VIAL INFILTRATI ONE (07:52)
[2021-03-16] MEDS ORDERED: VANCOMYCIN/NS 1 GM/250 ML 1 GM/250 ML BAG IV SCH (08:00)
[2021-03-16] MEDS ORDERED: SODIUM CHLORIDE 0.9% IRR 1,500 ML BOTTLE IR ONE (09:10)
[2021-03-16] MEDS ORDERED: rifAMPin 600 MG VIAL IV ONE (09:16)
[2021-03-16] MEDS ORDERED: GENTAMICIN 40 MG/ML VIAL 2 ML IV ONE (09:16)
[2021-03-16] MEDS ORDERED: SODIUM CHLORIDE 0.9% 500 ML IVPB IRRIGATION ONE (09:20)
[2021-03-16] MEDS ORDERED: LACTATED RINGERS 1,000 ML ONE (09:40)
[2021-03-16] MEDS ORDERED: fentaNYL 100 MCG/2 ML INJ ONE (09:40)
[2021-03-16] MEDS ORDERED: KETOROLAC 30 MG/1 ML INJ ONE (09:42)
[2021-03-16] MEDS ORDERED: ONDANSETRON 4 MG/2 ML INJ ONE (09:42)
[2021-03-16] MEDS ORDERED: GLYCOPYRROLATE 0.4 MG/2 ML INJ ONE (09:42)
--- NOTE | 2021-03-16 09:58 | Short Stay Summary ---
Short Stay Documentation Date of service: 03/16/21 - History H&P: obtained from office - Allergies and Medications Current Medications: Allergies travoprost [From Travatan Z] Allergy (Verified 01/13/21 11:56) Swelling lisinopril Adverse Reaction (Verified 01/13/21 11:54) ACUTE RENAL FAILURE spironolactone Adverse Reaction (Verified 01/13/21 11:54) BREAST ENLARGEMENT tramadol Adverse Reaction (Verified 01/13/21 11:54) ACUTE RENAL FAILURE Home Medications Medication Instructions Recorded Confirmed Last Taken Type Aspirin [Adult Aspirin] 81 mg PO DAILY 10/16/18 03/16/21 03/10/21 09:00 History AtorvaSTATin [Lipitor] 40 mg PO QHS 10/17/18 03/16/21 03/15/21 20:00 History Cetirizine HCl [ZyrTEC 10mg cap] 10 mg PO DAILY 10/17/18 03/16/21 03/15/21 09:00 History Cholecalciferol (Vitamin D3) 1,000 unit PO DAILY 10/17/18 03/16/21 03/15/21 09:00 History [Children's Vitamin D3 1,000 unit CHEW] DOXYCYCLINE Hyclate [Vibramycin] 100 mg PO Q12HR 10/17/18 03/16/21 03/15/21 18:00 History Docusate Sodium [Colace] 100 mg PO BID PRN 10/17/18 03/09/21 Unknown History Eplerenone [Inspra] 50 mg PO BID 10/17/18 03/16/21 03/15/21 18:00 History Insulin Aspart (Nf) [NovoLOG 17 units SQ TID 10/17/18 03/16/21 03/15/21 17:00 History Flexpen] Insulin Glargine,Hum.rec.anlog 18 unit SQ QHS 10/17/18 03/16/21 03/15/21 21:00 History [Lantus Solostar] Losartan [Cozaar] 100 mg PO BID 10/17/18 03/09/21 Unknown History Prazosin [Minipress] 5 mg PO DAILY 10/17/18 03/16/21 03/15/21 09:00 History Pregabalin [Lyrica] 100 mg PO DAILY 10/17/18 03/16/21 03/15/21 09:00 History amLODIPine [Norvasc] 2.5 mg PO DAILY 10/17/18 03/16/21 03/15/21 09:00 History Bupropion HCl [Wellbutrin XL] 300 mg PO QAM 01/13/21 03/16/21 03/15/21 09:00 History Doxepin [SINEquan] 50 mg PO DAILY 01/13/21 03/16/21 03/15/21 09:00 History Memantine [Namenda] 10 mg PO BID 01/13/21 03/09/21 Unknown History Mirtazapine [Remeron 15mg TAB] 15 mg PO QHS 01/13/21 03/09/21 Unknown History donepeziL [Aricept] 10 mg PO QDAY 01/13/21 03/16/21 03/15/21 09:00 History metFORMIN [Glucophage] 500 mg PO QDAY 01/13/21 03/16/21 03/15/21 09:00 History Active Medications Acetaminophen (Acetaminophen 500 Mg Tab) 650 mg PO PREOP ANGELO Stop: 03/16/21 20:00 Last Admin: 03/16/21 06:45 Dose: 650 mg Documented by: Hydromorphone HCl (Hydromorphone 1 Mg/1 Ml Inj) 0.5 mg IV Q10MIN PRN PRN Reason: Pain , Severe (7-10) Stop: 03/16/21 23:00 Lactated Ringer's (Lactated Ringers) 1,000 mls @ 100 mls/hr IV DIRECT ANGELO Stop: 03/16/21 23:59 Ondansetron HCl (Ondansetron 4 Mg/2 Ml Inj) 4 mg IV ONCE PRN PRN Reason: Nausea And Vomiting Stop: 03/16/21 12:00 - Brief post op/procedure progress note Date of procedure: 03/16/21 Pre-op diagnosis: malfunction ipp Post-op diagnosis: other (pump fracture) Procedure: replace ipp (replace fractured pump), scrotaplasty Anesthesia: IVET Surgeon: BRANDI CLANCY Pathology: list (pump given to rep---Tony Arias) Condition: stable - Hospital course Hospital course: pt has bactrim, norco, post op info DOLEY & WRAP REMOVED--DC HOME - Disposition Condition at discharge: Stable Disposition: 06 HOME HEALTH CARE SERVICE Short Stay Discharge Plan Follow up with: ABBIE DORANTES MD [Staff Physician] - 7 Days [facility] [Primary Care Provider] - 7 Days
[2021-03-16] MEDS ORDERED: ACETAMINOPHEN 325 MG TAB PO PRN (10:00)
[2021-03-16] MEDS ORDERED: NALOXONE 0.4 MG/1 ML INJ IV PRN (10:00)
[2021-03-16] MEDS ORDERED: SODIUM CHLORIDE 0.45% 1000 ML 1,000 ML IV SCH (10:00)
[2021-03-16] MEDS ORDERED: MORPHINE 4 MG/1 ML INJ IV PRN (10:00)
[2021-03-16] MEDS ORDERED: DEXTROSE 50% IN WATER (25GM) 50 ML SYRINGE IV PRN (10:00)
[2021-03-16] MEDS ORDERED: DOCUSATE SODIUM 100 MG CAP PO PRN (10:05)
[2021-03-16] MEDS ORDERED: hydrALAZINE 20 MG/1 ML INJ ONE (10:32)
[2021-03-16] MEDS ORDERED: hydrALAZINE 20 MG/1 ML INJ IV ONE (11:00)
[2021-03-16] MEDS ORDERED: LOSARTAN 50 MG TAB PO SCH ×2 (12:00)
--- NOTE | 2021-03-16 12:15 | Consultation ---
History of Present Illness - Reason for Consult Consult date: 03/16/21 Diabetes mellitus Requesting physician: BRANDI CLANCY - History of Present Illness Patient is a 70 year old male with past medical hx of HD, HTN and ED with prior hx of IPP presenting today for replacement of fractured Pump. Scrotaplasty. The patient has been on Bactrim and [place] and tolerated procedure well without any complications. We are consulted to assist with mangemnt of HD. He denies any chest pain, blurry vision, polyuria or polydipisa. He states that he is up to date with his medications Past History Past Medical History: hypertension, other (ED) Past Surgical History: Other (IPP) Social history: Family history: no significant family history Medications and Allergies Allergies Allergy/AdvReac Type Severity Reaction Status Date / Time travoprost [From Travatan Z] Allergy Swelling Verified 01/13/21 11:56 lisinopril AdvReac ACUTE Verified 01/13/21 11:54 RENAL FAILURE spironolactone AdvReac BREAST Verified 01/13/21 11:54 ENLARGEMENT tramadol AdvReac ACUTE Verified 01/13/21 11:54 RENAL FAILURE Home Medications Medication Instructions Recorded Confirmed Last Taken Type Aspirin [Adult Aspirin] 81 mg PO DAILY 10/16/18 03/16/21 03/10/21 09:00 History AtorvaSTATin [Lipitor] 40 mg PO QHS 10/17/18 03/16/21 03/15/21 20:00 History Cetirizine HCl [ZyrTEC 10mg cap] 10 mg PO DAILY 10/17/18 03/16/21 03/15/21 09:00 History Cholecalciferol (Vitamin D3) 1,000 unit PO DAILY 10/17/18 03/16/21 03/15/21 09:00 History [Children's Vitamin D3 1,000 unit CHEW] DOXYCYCLINE Hyclate [Vibramycin] 100 mg PO Q12HR 10/17/18 03/16/21 03/15/21 18:00 History Docusate Sodium [Colace] 100 mg PO BID PRN 10/17/18 03/09/21 Unknown History Eplerenone [Inspra] 50 mg PO BID 10/17/18 03/16/21 03/15/21 18:00 History Insulin Aspart (Nf) [NovoLOG 17 units SQ TID 10/17/18 03/16/21 03/15/21 17:00 History Flexpen] Insulin Glargine,Hum.rec.anlog 18 unit SQ QHS 10/17/18 03/16/21 03/15/21 21:00 History [Lantus Solostar] Losartan [Cozaar] 100 mg PO BID 10/17/18 03/09/21 Unknown History Prazosin [Minipress] 5 mg PO DAILY 10/17/18 03/16/21 03/15/21 09:00 History Pregabalin [Lyrica] 100 mg PO DAILY 10/17/18 03/16/21 03/15/21 09:00 History amLODIPine [Norvasc] 2.5 mg PO DAILY 10/17/18 03/16/21 03/15/21 09:00 History Bupropion HCl [Wellbutrin XL] 300 mg PO QAM 01/13/21 03/16/21 03/15/21 09:00 History Doxepin [SINEquan] 50 mg PO DAILY 01/13/21 03/16/21 03/15/21 09:00 History Memantine [Namenda] 10 mg PO BID 01/13/21 03/09/21 Unknown History Mirtazapine [Remeron 15mg TAB] 15 mg PO QHS 01/13/21 03/09/21 Unknown History donepeziL [Aricept] 10 mg PO QDAY 01/13/21 03/16/21 03/15/21 09:00 History metFORMIN [Glucophage] 500 mg PO QDAY 01/13/21 03/16/21 03/15/21 09:00 History Active Meds: Active Medications Acetaminophen (Acetaminophen 500 Mg Tab) 650 mg PO PREOP ANGELO Stop: 03/16/21 20:00 Last Admin: 03/16/21 06:45 Dose: 650 mg Documented by: Acetaminophen (Acetaminophen 325 Mg Tab) 650 mg PO Q4H PRN PRN Reason: Pain MILD(1-3)/Fever >100.5/BYRNE Hydrocodone Bitart/Acetaminophen (Hydrocodone/Acetaminophen 5-325 Mg Tab) 2 each PO Q6H PRN PRN Reason: Pain, Moderate (4-6) Amlodipine Besylate (Amlodipine 5 Mg Tab) 2.5 mg PO QDAY [facility] Atorvastatin Calcium (Atorvastatin 40 Mg Tab) 40 mg PO QHS ANGELO Dextrose (Dextrose 50% In Water (25gm) 50 Ml Syringe) 50 ml IV Q30MIN PRN; Protocol PRN Reason: Hypoglycemia Docusate Sodium (Docusate Sodium 100 Mg Cap) 100 mg PO BID PRN PRN Reason: Constipation Donepezil HCl (Donepezil 10 Mg Tab) 10 mg PO QDAY ANGELO Hydromorphone HCl (Hydromorphone 1 Mg/1 Ml Inj) 0.5 mg IV Q10MIN PRN PRN Reason: Pain , Severe (7-10) Stop: 03/16/21 23:00 Lactated Ringer's (Lactated Ringers) 1,000 mls @ 100 mls/hr IV DIRECT ANGELO Stop: 03/16/21 23:59 Sodium Chloride (Nacl 0.45% 1000 Ml) 1,000 mls @ 100 mls/hr IV DIRECT ANGELO Cefazolin Sodium (Ancef/Ns 1 Gm/50 Ml) 1 gm in 50 mls @ 100 mls/hr IV Q8H NAGELO; Protocol Stop: 03/17/21 00:29 Insulin Human Lispro (Insulin Lispro 100 Unit/Ml) 0 unit SUB-Q ACHS ANGELO; Protocol Losartan Potassium (Losartan 50 Mg Tab) 100 mg PO QDAY ANGELO Memantine (Memantine 10 Mg Tab) 10 mg PO BID ANGELO Metformin HCl (Metformin 500 Mg Tab) 500 mg PO QDDIAB ANGELO Mirtazapine (Mirtazapine 15 Mg Tab) 15 mg PO QHS [facility] Miscellaneous Medication (Bupropion Hcl [Wellbutrin Xl]) 300 mg PO QAM [facility] Miscellaneous Medication (Cetirizine Hcl [Zyrtec 10mg Cap]) 10 mg PO DAILY [facility] Miscellaneous Medication (Doxepin [Sinequan]) 50 mg PO DAILY ANGELO Miscellaneous Medication (Eplerenone [Inspra]) 50 mg PO BID ANGELO Miscellaneous Medication (Insulin Aspart (Nf)) 17 units SQ TID ANGELO Miscellaneous Medication (Insulin Glargine,Hum.Rec.Anlog [Lantus Solostar]) 18 unit SQ QHS [facility] Miscellaneous Medication (Pregabalin [Lyrica]) 100 mg PO DAILY [facility] Morphine Sulfate (Morphine 4 Mg/1 Ml Inj) 4 mg IV Q4H PRN PRN Reason: Pain , Severe (7-10) Naloxone HCl (Naloxone 0.4 Mg/1 Ml Inj) 0.1 mg IV Q2MIN PRN PRN Reason: Res Rate </= 8 or 02 SAT < 92% Ondansetron HCl (Ondansetron 4 Mg/2 Ml Inj) 4 mg IV Q8H PRN PRN Reason: N/V unrelieved by Reglan Prazosin HCl (Prazosin 5 Mg Cap) 5 mg PO DAILY ANGELO Review of Systems All systems: negative Cardiovascular: no chest pain, no orthopnea, no palpitations, no rapid/irregular heart beat, no edema Respiratory: no cough, no cough with sputum, no excessive sputum, no hemoptysis, no shortness of breath, no dyspnea on exertion, no congestion, no wheezing Gastrointestinal: no nausea, no diarrhea, no constipation, no change in bowel habits Genitourinary Male: genital pain (surgical site) Exam - Physical Exam Narrative exam: VITAL SIGNS: Reviewed. GENERAL: The patient appears normally developed, Vital signs as documented. HEAD: No signs of head trauma. EYES: Pupils are equal. Extraocular motions intact. EARS: Hearing grossly intact. MOUTH: Oropharynx is normal. NECK: No adenopathy, no JVD. CHEST: Chest with clear breath sounds bilaterally. No wheezes, rales, or rhonchi. CARDIAC: Regular rate and rhythm. S1 and S2, without murmurs, gallops, or rubs. VASCULAR: No Edema. Peripheral pulses normal and equal in all extremities. ABDOMEN: Soft, non tender and non distended. No rebound or guarding, and no masses palpated. Bowel Sounds normal. MUSCULOSKELETAL: Good range of motion of all major joints. Extremities without clubbing, cyanosis or edema. NEUROLOGIC EXAM: Alert and oriented x 3 No focal sensory or strength deficits. Speech normal. Follows commands. PSYCHIATRIC: Mood normal. SKIN: detail exam as documented in skin assessment - Constitutional Vitals: Temp Pulse Resp BP Pulse Ox 97.1 F L 71 16 146/88 100 03/16/21 10:45 03/16/21 11:00 03/16/21 11:00 03/16/21 11:05 03/16/21 11:00 Results - Labs CBC & Chem 7: 03/14/21 09:30 03/14/21 00:01 Labs: Abnormal lab results 03/16/21 03/16/21 Range/Units 06:49 11:52 POC Glucose 106 H 124 H (70-105) mg/dL Assessment and Plan Patient is a 70 year old male with past medical hx of HD, HTN and ED with prior hx of IPP presenting today for replacement of fractured Pump. Scrotaplasty. The patient has been on Bactrim and [place] and tolerated procedure well without any complications. We are consulted to assist with management of HD. He denies any chest pain, blurry vision, polyuria or polydipisa. He states that he is up to date with his medications Diabetes mellitus Rectal dysfunction with functional pump Hypertension Plan To do supportive care out as outlined by the surgeon Continue insulin management and monitor Accu-Cheks before meals at bedtime Diabetic diet. No objection to discharge in the a.m. Thank you for allowing us take part in the care of your patient as an information become available more therapeutic or diagnostic and significantly limited
--- NOTE | 2021-03-16 12:17 | Operative Report ---
DATE OF SURGERY: 03/16/2021 PREOPERATIVE DIAGNOSIS: Malfunctioning penile prosthesis (Coloplast). POSTOPERATIVE DIAGNOSIS: Malfunctioning penile prosthesis (Coloplast) (pump fracture). PROCEDURES: Replacement of Coloplast pump, scrotoplasty. SURGEON: Daniel Painter MD ANESTHESIA: General. BREED TO WEAN PRODUCTION TECHNICIAN: Elida Andrade. ESTIMATED BLOOD LOSS: Minimal. FLUIDS: Crystalloid. COMPLICATIONS: No complications. INDICATIONS: This patient is a 70-year-old gentleman known to our service with a history of erectile dysfunction secondary to diabetes and hypertension. He underwent a penile pump placement in 10/2018 (Coloplast Titan 22 cm with a 2 cm rear tip assistant manager pt). The patient had done well. He presented to the office several weeks ago with inability to inflate. Exam was consistent with a leak, presents now for surgical intervention. DESCRIPTION OF PROCEDURE: The patient was taken to the operative suite, placed in a supine position. After adequate general anesthesia, he was prepped and draped in a sterile fashion. Manipulation of the pump again confirmed a leak. A P[place] catheter was placed. A metal [place] retractor was used for exposure. A transscrotal incision was made with Bovie. Sharp dissection was taken down to the tubing. Tubing and pump was exposed. Obvious fracture of the pump in the lower aspect could be appreciated. The fluid appeared clear. No signs of infection. Culture of the pump was obtained, sent for routine evaluation. Traced the tubing end more proximal, pushed out on all 3 tubes, transected them. Prepped a new pump. Cycled the fluid in both the 125 mL reservoir and cylinders. Clear fluid. No sign of debris. Attached the new pump with the quick click connection system, again cycled the new pump multiple times with an excellent erection. Copious irrigation was performed. Adequate hemostasis was achieved. Antibiotic irrigation was also used. The pump was placed in the dependent portion of the scrotum. Pursestring suture was used using 2-0 Vicryl, used to secure it in the dependent portion. [place] layer was closed with a 2-0 Vicryl in a running fashion. Skin was closed with 2-0 Vicryl in interrupted fashion. Collodion was placed and a mummy wrap. The patient tolerated the procedure well. He was extubated and taken to recovery room. He will be observed overnight. Elida Andrade was present throughout the procedure as an clinical lab assistant. He has Bactrim and [place]. TID: [id number] RECEIPT: [id number] ROSALINE/SEBLE/ADOLFO
[2021-03-16] MEDS ORDERED: NON-FORMULARY EACH (Insulin Aspart (Nf) 100 UNIT/ML Insuln.Pen) SQ SCH (14:00)
--- NOTE | 2021-03-16 14:09 | Post Anesthesia Evaluation ---
- Post Anesthesia Evaluation Patient Participated: Yes Airway Patent: Yes Stable Respiratory Function: Yes Nausea/Vomiting: No Temp > 96.8F: Yes Pain Manageable: Yes Adequeate Hydration: Yes Anesthesia Complications: No
[2021-03-16] MEDS: INSULIN LISPRO 100 UNIT/ML SUB-Q SCH ×4 (14:54→22:25)
[2021-03-16] MEDS: amLODIPine 5 MG TAB PO SCH (14:58)
[2021-03-16] MEDS: ceFAZolin/NS 1 GM/50 ML 1 GM/50 ML BAG IV SCH (15:50)
[2021-03-16] MEDS: metFORMIN 500 MG TAB PO SCH (18:14)
[2021-03-16] MEDS ORDERED: NON-FORMULARY EACH (Losartan [Cozaar] 100 MG Tablet) PO SCH (22:00)
[2021-03-16] MEDS ORDERED: NON-FORMULARY EACH (Insulin Glargine,Hum.Rec.Anlog [Lantus Solostar] 100 UNIT/ML Insuln.Pe SQ SCH (22:00)
[2021-03-16] MEDS ORDERED: INSULIN GLARGINE 100 UNITS/ML SUB-Q SCH (22:00)
[2021-03-16] MEDS ORDERED: EPLERENONE 50 MG PO SCH (22:00)
[2021-03-16] MEDS ORDERED: MIRTAZAPINE 15 MG TAB PO SCH (22:00)
[2021-03-16] MEDS ORDERED: ZOLPIDEM 5 MG TAB PO PRN (22:04)
[2021-03-16] MEDS: MEMANTINE 10 MG TAB PO SCH (22:10)
[2021-03-16] MEDS: HYDROcodone/ACETAMINOPHEN 5-325 MG TAB PO PRN (22:15)
[2021-03-17] MEDS: ceFAZolin/NS 1 GM/50 ML 1 GM/50 ML BAG IV SCH (02:50)
[2021-03-17] MEDS: INSULIN LISPRO 100 UNIT/ML SUB-Q SCH ×2 (09:51→09:52)
[2021-03-17] MEDS: metFORMIN 500 MG TAB PO SCH (09:52)
[2021-03-17] MEDS: HYDROcodone/ACETAMINOPHEN 5-325 MG TAB PO PRN (09:52)
[2021-03-17] MEDS: amLODIPine 5 MG TAB PO SCH (09:53)
[2021-03-17] MEDS: MEMANTINE 10 MG TAB PO SCH (09:53)
[2021-03-17] MEDS ORDERED: NON-FORMULARY EACH (Cetirizine Hcl [Zyrtec 10mg Cap] 10 MG Capsule) PO SCH (10:00)
[2021-03-17] MEDS ORDERED: CETIRIZINE 10 MG TAB PO SCH (10:00)
[2021-03-17] MEDS ORDERED: DOXEPIN 50 MG PO SCH (10:00)
[2021-03-17] MEDS ORDERED: PRAZOSIN 5 MG CAP PO SCH (10:00)
[2021-03-17] MEDS ORDERED: buPROPion XL 150 MG TAB PO SCH (10:00)
[2021-03-17] MEDS ORDERED: PREGABALIN 50 MG CAP PO SCH (10:00)
[2021-03-17] MEDS ORDERED: amLODIPine 10 MG TAB PO SCH (10:00)
[2021-03-17] MEDS ORDERED: DONEPEZIL 10 MG TAB PO SCH (10:00)
[2021-03-17] MEDS ORDERED: DOXEPIN 25 MG CAP PO SCH (10:00)
[2021-03-17] MEDS ORDERED: NON-FORMULARY EACH (Pregabalin [Lyrica] 100 MG Capsule) PO SCH (10:00)
[2021-03-17] MEDS ORDERED: NON-FORMULARY EACH (Bupropion Hcl [Wellbutrin Xl] 300 MG Tab.Er.24h) PO SCH (10:00)
--- NOTE | 2021-03-17 10:54 | Discharge Summary ---
Short Stay Discharge Plan Activity: other (no straining ) Weight Bearing Status: Full Weight Bearing Diet: low fat, low cholesterol, low salt, diabetic Wound: open to air Special Instructions: other (no sex ) Follow up with: [facility] [Primary Care Provider] - 7 Days ABBIE DORANTES MD [Staff Physician] - 7 Days
--- NOTE | 2021-03-17 10:55 | Progress Note ---
Assessment and Plan no eccymosis no edema wrap removed cath out home today Subjective Date of service: 03/17/21 Principal diagnosis: ed Objective - Constitutional Vitals: Vital Signs - 12hr 03/16/21 03/17/21 03/17/21 23:50 02:19 02:49 Temperature 97.8 F Pulse Rate 80 Respiratory 20 20 Rate Blood Pressure 120/80 O2 Sat by Pulse 99 96 Oximetry 03/17/21 03/17/21 03:53 07:39 Temperature 98.1 F 97.6 F Pulse Rate 74 77 Respiratory 16 20 Rate Blood Pressure 137/81 132/87 O2 Sat by Pulse 96 95 Oximetry General appearance: Present: no acute distress - Respiratory Respiratory effort: normal - Labs CBC & Chem 7: 03/14/21 09:30 03/14/21 00:01 Labs: Abnormal lab results 03/16/21 03/16/21 03/16/21 Range/Units 11:52 15:21 21:06 POC Glucose 124 H 143 H 171 H (70-105) mg/dL 03/17/21 Range/Units 07:41 POC Glucose 138 H (70-105) mg/dL Medications & Allergies - Medications Allergies/Adverse Reactions: Allergies travoprost [From Travatan Z] Allergy (Verified 03/17/21 10:32) Swelling lisinopril Adverse Reaction (Verified 03/17/21 10:32) ACUTE RENAL FAILURE spironolactone Adverse Reaction (Verified 03/17/21 10:32) BREAST ENLARGEMENT tramadol Adverse Reaction (Verified 03/17/21 10:32) ACUTE RENAL FAILURE Home Medications: Home Medications Medication Instructions Recorded Confirmed Last Taken Type Aspirin [Adult Aspirin] 81 mg PO DAILY 10/16/18 03/16/21 03/10/21 09:00 History AtorvaSTATin [Lipitor] 40 mg PO QHS 10/17/18 03/16/21 03/15/21 20:00 History Cetirizine HCl [ZyrTEC 10mg cap] 10 mg PO DAILY 10/17/18 03/16/21 03/15/21 09:00 History Cholecalciferol (Vitamin D3) 1,000 unit PO DAILY 10/17/18 03/16/21 03/15/21 09:00 History [Children's Vitamin D3 1,000 unit CHEW] DOXYCYCLINE Hyclate [Vibramycin] 100 mg PO Q12HR 10/17/18 03/16/21 03/15/21 18:00 History Docusate Sodium [Colace] 100 mg PO BID PRN 10/17/18 03/17/21 03/15/21 History Eplerenone [Inspra] 50 mg PO BID 10/17/18 03/16/21 03/15/21 18:00 History Insulin Aspart (Nf) [NovoLOG 17 units SQ TID 10/17/18 03/16/21 03/15/21 17:00 History Flexpen] Insulin Glargine,Hum.rec.anlog 18 unit SQ QHS 10/17/18 03/16/21 03/15/21 21:00 History [Lantus Solostar] Losartan [Cozaar] 100 mg PO BID 10/17/18 03/17/21 03/15/21 History Prazosin [Minipress] 5 mg PO DAILY 10/17/18 03/16/21 03/15/21 09:00 History Pregabalin [Lyrica] 100 mg PO DAILY 10/17/18 03/16/21 03/15/21 09:00 History amLODIPine [Norvasc] 2.5 mg PO DAILY 10/17/18 03/16/21 03/15/21 09:00 History Bupropion HCl [Wellbutrin XL] 300 mg PO QAM 01/13/21 03/16/21 03/15/21 09:00 History Doxepin [SINEquan] 50 mg PO DAILY 01/13/21 03/16/21 03/15/21 09:00 History Memantine [Namenda] 10 mg PO BID 01/13/21 03/09/21 Unknown History Mirtazapine [Remeron 15mg TAB] 15 mg PO QHS 01/13/21 03/09/21 Unknown History donepeziL [Aricept] 10 mg PO QDAY 01/13/21 03/16/21 03/15/21 09:00 History metFORMIN [Glucophage] 500 mg PO QDAY 01/13/21 03/16/21 03/15/21 09:00 History Active Medications: Generic Name Dose Route Start Last Admin Trade Name Freq PRN Reason Stop Dose Admin Acetaminophen 650 mg 03/16/21 10:00 Acetaminophen 325 Mg Tab PO Q4H PRN Pain MILD(1-3)/Fever >100.5/BYRNE Hydrocodone Bitart/Acetaminophen 2 each 03/16/21 10:00 03/17/21 09:52 Hydrocodone/Acetaminophen 5-325 Mg Tab PO 2 each Q6H PRN Administration Pain, Moderate (4-6) Amlodipine Besylate 2.5 mg 03/16/21 12:00 03/17/21 09:53 Amlodipine 5 Mg Tab PO 2.5 mg QDAY ANGELO Administration Atorvastatin Calcium 40 mg 03/16/21 22:00 03/16/21 22:10 Atorvastatin 40 Mg Tab PO 40 mg QHS ANGELO Administration Bupropion HCl 300 mg 03/17/21 10:00 Bupropion Xl 150 Mg Tab PO QAM ANGELO Cetirizine HCl 10 mg 03/17/21 10:00 03/17/21 09:53 Cetirizine 10 Mg Tab PO 10 mg DAILY ANGELO Administration Dextrose 50 ml 03/16/21 10:00 Dextrose 50% In Water (25gm) 50 Ml Syringe IV Q30MIN PRN Hypoglycemia Protocol Docusate Sodium 100 mg 03/16/21 10:05 03/17/21 09:53 Docusate Sodium 100 Mg Cap PO 100 mg BID PRN Administration Constipation Donepezil HCl 10 mg 03/17/21 10:00 03/17/21 09:53 Donepezil 10 Mg Tab PO 10 mg QDAY ANGELO Administration Doxepin HCl 50 mg 03/17/21 10:00 Doxepin 25 Mg Cap PO DAILY [facility] Sodium Chloride 1,000 mls @ 100 mls/hr 03/16/21 10:00 Nacl 0.45% 1000 Ml IV DIRECT [facility] Insulin Glargine 18 units 03/16/21 22:00 03/16/21 22:21 Insulin Glargine 100 Units/Ml SUB-Q Not Given QHS [facility] Insulin Human Lispro 0 unit 03/16/21 11:30 03/17/21 09:51 Insulin Lispro 100 Unit/Ml SUB-Q Not Given ACHS [facility] Protocol Insulin Human Lispro 17 unit 03/16/21 16:30 03/17/21 09:52 Insulin Lispro 100 Unit/Ml SUB-Q 17 unit AC ANGELO Administration Losartan Potassium 100 mg 03/16/21 12:00 03/16/21 14:58 Losartan 50 Mg Tab PO 100 mg QDAY ANGELO Administration Memantine 10 mg 03/16/21 22:00 03/17/21 09:53 Memantine 10 Mg Tab PO 10 mg BID ANGELO Administration Metformin HCl 500 mg 03/16/21 17:00 03/17/21 09:52 Metformin 500 Mg Tab PO 500 mg QDDIAB ANGELO Administration Mirtazapine 15 mg 03/16/21 22:00 03/16/21 22:11 Mirtazapine 15 Mg Tab PO 15 mg QHS ANGELO Administration Miscellaneous Medication 50 mg 03/16/21 22:00 Eplerenone [Inspra] PO BID [facility] Morphine Sulfate 4 mg 03/16/21 10:00 03/17/21 02:49 Morphine 4 Mg/1 Ml Inj IV 4 mg Q4H PRN Administration Pain , Severe (7-10) Naloxone HCl 0.1 mg 03/16/21 10:00 Naloxone 0.4 Mg/1 Ml Inj IV Q2MIN PRN Res Rate </= 8 or 02 SAT < 92% Ondansetron HCl 4 mg 03/16/21 10:00 Ondansetron 4 Mg/2 Ml Inj IV Q8H PRN N/V unrelieved by Jasmeet Prazosin HCl 5 mg 03/17/21 10:00 Prazosin 5 Mg Cap PO DAILY [facility] Pregabalin 100 mg 03/17/21 10:00 03/17/21 09:53 Pregabalin 50 Mg Cap PO 100 mg DAILY [facility] Administration Zolpidem Tartrate 5 mg 03/16/21 22:04 03/16/21 22:15 Zolpidem 5 Mg Tab PO 5 mg QHS PRN Administration Sleep
[2021-03-17 12:18] VITALS: BP 140/94
--- NOTE | 2021-03-17 14:49 | Progress Note ---
Assessment and Plan Assessment and plan: Patient is a 70 year old male with past medical hx of HD, HTN and ED with prior hx of IPP presenting today for replacement of fractured Pump. Scrotaplasty. The patient has been on Bactrim and [place] and tolerated procedure well without any complications. We are consulted to assist with management of HD. He denies any chest pain, blurry vision, polyuria or polydipisa. He states that he is up to date with his medications Diabetes mellitus Rectal dysfunction with functional pump Hypertension Plan Clinical stable for discharge Continue insulin management and monitor Accu-Cheks before meals at bedtime Diabetic diet. No objection to discharge in the a.m. Thank you for allowing us take part in the care of your patient as an information become available more therapeutic or diagnostic and significantly limited History Interval history: Patient seen and examined, no new complaints, uneventful day Hospitalist Physical - Physical exam Narrative exam: VITAL SIGNS: Reviewed. GENERAL: The patient appears normally developed, Vital signs as documented. HEAD: No signs of head trauma. EYES: Pupils are equal. Extraocular motions intact. EARS: Hearing grossly intact. MOUTH: Oropharynx is normal. NECK: No adenopathy, no JVD. CHEST: Chest with clear breath sounds bilaterally. No wheezes, rales, or rhonchi. CARDIAC: Regular rate and rhythm. S1 and S2, without murmurs, gallops, or rubs. VASCULAR: No Edema. Peripheral pulses normal and equal in all extremities. ABDOMEN: Soft, non tender and non distended. No rebound or guarding, and no masses palpated. Bowel Sounds normal. MUSCULOSKELETAL: Good range of motion of all major joints. Extremities without clubbing, cyanosis or edema. NEUROLOGIC EXAM: Alert and oriented x 3 No focal sensory or strength d eficits. Speech normal. Follows commands. PSYCHIATRIC: Mood normal. SKIN: detail exam as documented in skin assessment - Constitutional Vitals: Temp Pulse Resp BP Pulse Ox 98.6 F 90 18 140/94 95 03/17/21 12:11 03/17/21 12:11 03/17/21 12:11 03/17/21 12:11 03/17/21 12:11 General appearance: Present: no acute distress Results - Labs CBC & Chem 7: 03/14/21 09:30 03/14/21 00:01 Labs: Laboratory Last Values WBC 4.0 K/mm3 (4.5-11.0) L 03/14/21 09:30 RBC 4.22 M/mm3 (3.65-5.03) 03/14/21 09:30 Hgb 12.5 gm/dl (11.8-15.2) 03/14/21 09:30 Hct 38.0 % (35.5-45.6) 03/14/21 09:30 MCV 90 fl (84-94) 03/14/21 09:30 MCH 30 pg (28-32) 03/14/21 09:30 MCHC 33 % (32-34) 03/14/21 09:30 RDW 14.0 % (13.2-15.2) 03/14/21 09:30 Plt Count 196 K/mm3 (140-440) 03/14/21 09:30 Sodium 142 mmol/L (137-145) 03/14/21 00:01 Potassium 3.9 mmol/L (3.6-5.0) 03/14/21 00:01 Chloride 103.6 mmol/L (98-107) 03/14/21 00:01 Carbon Dioxide 27 mmol/L (22-30) 03/14/21 00:01 Anion Gap 15 mmol/L 03/14/21 00:01 BUN 13 mg/dL (9-20) 03/14/21 00:01 Creatinine 1.2 mg/dL (0.8-1.3) 03/14/21 00:01 Estimated GFR > 60 ml/min 03/14/21 00:01 BUN/Creatinine Ratio 11 % 03/14/21 00:01 Glucose 124 mg/dL (75-100) H 03/14/21 00:01 POC Glucose 129 mg/dL (70-105) H 03/17/21 12:43 Calcium 9.1 mg/dL (8.4-10.2) 03/14/21 00:01 Total Bilirubin 0.40 mg/dL (0.1-1.2) 03/14/21 00:01 AST 13 units/L (5-40) 03/14/21 00:01 ALT 10 units/L (7-56) 03/14/21 00:01 Alkaline Phosphatase 86 units/L (35-129) 03/14/21 00:01 Total Protein 7.1 g/dL (6.3-8.2) 03/14/21 00:01 Albumin 4.0 g/dL (3.9-5) 03/14/21 00:01 Albumin/Globulin Ratio 1.3 % 03/14/21 00:01 Coronavirus (PCR) Negative (Negative) 03/14/21 09:30 Microbiology: Microbiology 03/16/21 Unknown Other (Please Specify:) - Other Surgical Culture - Preliminary Pryor/IV: Voiding Method Toilet
== END 2021-03-17 13:45 | disposition home health service (06) ==
LOC: OR 05:58 → 3A 10:00 → 4A 10:44
PROVIDERS: ADMIT Urology; ATTEND Urology
DX: N52.01 Erectile dysfunction due to arterial insufficiency (principal); Z20.822 Contact with and (suspected) exposure to COVID-19; N52.9 Male erectile dysfunction, unspecified; I10 Essential (primary) hypertension; E11.9 Type 2 diabetes mellitus without complications; K59.9 Functional intestinal disorder, unspecified; E78.5 Hyperlipidemia, unspecified; Z87.891 Personal history of nicotine dependence; Z79.4 Long term (current) use of insulin; Z79.82 Long term (current) use of aspirin
CPT/HCPCS: 36415; 54400; 55180; 80053; 82962; 85027; 87075; 87116; 88305; 96365; 96366; 96372; 96375; C1813; G0378; J0360; J0690; J1170; J1580; J1885; J2270; J2704; J3010; J3370; J3490; J7040; J7120; U0003; J0278; J1815; J2405